=== PATIENT | female | born 1960 | race Native Hawaiian/Other Pacific Islander ===

== ENCOUNTER 2019-08-01 12:59 | Outpatient (CLI) | payer OTHER | END 2019-08-01 21:51 | disposition home or self-care (01) | LOC: RAD 12:59 | DX: M54.2 Cervicalgia (principal) ==

== ENCOUNTER 2020-05-07 14:47 | Emergency (ER) | payer OTHER ==
[~2020-05-07] VITALS: Ht 162.6 cm; Wt 71.7 kg
[2020-05-07 15:06] VITALS: BP 130/64; TEMP 99.4
== END 2020-05-07 17:40 | disposition home or self-care (01) ==
LOC: ED 14:47
DX: M54.5 Low back pain (principal); G89.29 Other chronic pain; M54.16 Radiculopathy, lumbar region; V49.3XXA Car occupant (driver) (passenger) injured in unspecified nontraffic accident, initial encounter; Y92.89 Other specified places as the place of occurrence of the external cause
CPT/HCPCS: 96372; 99283; J1885

== ENCOUNTER 2022-06-29 06:33 | Emergency (ER) | payer OTHER ==
[~2022-06-29] VITALS: Ht 162.6 cm; Wt 71.7 kg
[2022-06-29 06:33] VITALS: TEMP 99
[2022-06-29 08:08] VITALS: BP 162/78
== END 2022-06-29 08:08 | disposition home or self-care (01) ==
LOC: ED 06:33
PROC: 0HQ1XZZ Repair Face Skin, External Approach (ICD-10-PCS; principal; 2022-06-29)
DX: S01.81XA Laceration without foreign body of other part of head, initial encounter (principal); M50.322 Other cervical disc degeneration at C5-C6 level; G89.29 Other chronic pain; Y00.XXXA Assault by blunt object, initial encounter; Y92.028 Other place in mobile home as the place of occurrence of the external cause
CPT/HCPCS: 90471; 90715; 96372; 99283; J2060